=== PATIENT | female | born 2000 | race Caucasian/White ===

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

== ENCOUNTER 2024-08-20 02:21 | Emergency (ER) | payer SELFPAY ==
[~2024-08-20] VITALS: Ht 167.6 cm; Wt 52.2 kg
[2024-08-20 03:46] LABS: BILIRUBIN Negative (Negative); BLOOD 1+ (Negative); CLARITY Clear (Clear); COLOR Yellow (Yellow); GLUCOSE Negative (Negative); KETONE Negative (Negative); LEUKO ESTERASE Negative (Negative); NITRITE Negative (Negative); PH 5.5 (4.5-8.0); UROBILINOGEN 0.2 E.U./dl (0.0-1.0)
[2024-08-20 03:55] LABS: BACTERIA 1+; EPITHELIAL CELLS 21-30
== END 2024-08-20 08:32 | disposition home or self-care (01) ==
LOC: ED 02:21
PROVIDERS: Internal Medicine
DX: R10.30 Lower abdominal pain, unspecified (principal); M54.50 Low back pain, unspecified; R30.9 Painful micturition, unspecified; R50.9 Fever, unspecified; Z88.0 Allergy status to penicillin